=== PATIENT | male | born 1975 | race Caucasian/White ===

== ENCOUNTER 2021-05-23 15:28 | Emergency (ER) | payer SELFPAY ==
[~2021-05-23] VITALS: Ht 170.2 cm; Wt 61.4 kg
[2021-05-23] MEDS ORDERED: MORPHINE 4 MG/ML 1ML VIAL/SYRINGE (J2270) IV ONE (18:35)
--- NOTE | 2021-05-23 19:28 | REP ---
INDICATION: scrotal pain, inguinal pain, pls r/o hernia. COMPARISON: None. TECHNIQUE: High-resolution bilateral scrotal sonography. FINDINGS: Scrotal sonographic images demonstrate normal homogeneous testes. No intratesticular mass lesion is seen. Right testicular dimensions are 4.2 x 2.8 x 2.9 cm. The left testis measures 4.4 x 2.7 x 2.9 cm. There is a cyst in the head of the epididymis on the left measuring 0.3 cm in greatest diameter. Doppler flow is preserved to both testes. Resistive indices are 0.59 on the right and 0.46 on the left. There is no evidence of hernia, hydrocele, or varicocele. IMPRESSION: Normal bilateral scrotal sonography. Small epididymal cyst on the left. No acute abnormality. <Electronically signed by Roge Simms > 05/23/211924
--- NOTE | 2021-05-23 19:30 | REP ---
INDICATION: scrotal pain, inguinal pain, pls r/o hernia. COMPARISON: None. TECHNIQUE: Bilateral inguinal canal sonography is performed with and without Valsalva. FINDINGS: The patient's ability to Valsalva was somewhat limited by his pain. Inguinal canal sonography shows no evidence of hernia or abnormal fluid collection. No soft tissue mass is seen. IMPRESSION: No evidence of hernia is seen on either side. No abnormal fluid collection mass or adenopathy seen. <Electronically signed by Roge Simms > 05/23/211925
[2021-05-23 19:36] LABS: BASO # 0.1 10^3/uL (0.0-0.2); BASO % 0.7 % (0.0-1.0); EOS # 0.2 10^3/uL (0.0-0.5); EOS % 3.3 % (0.0-3.0); HEMATOCRIT 46.5 % (42.0-52.0); HEMOGLOBIN 16.1 g/dl (13.5-17.5); LYMPH # 1.7 10^3/uL (1.5-5.0); MEAN CORPUSCULAR HEMOGLOBIN 29.3 pg (27.0-33.0); MEAN CORPUSCULAR HGB CONC 34.6 g/dl (32.0-36.5); MEAN CORPUSCULAR VOLUME 84.7 fl (80.0-96.0); MONO # 0.6 10^3/uL (0.0-0.8); MONO % 8.5 % (2.0-8.0); NEUTROPHILS # 4.1 10^3/uL (1.5-8.5); NEUTROPHILS % 61.8 % (36.0-66.0); PLATELET COUNT, AUTOMATED 157 10^3/uL (150-450); RED BLOOD COUNT 5.49 10^6/uL (4.30-6.10); WHITE BLOOD COUNT 6.7 10^3/uL (4.0-10.0)
[2021-05-23] MEDS ORDERED: LIDOCAINE 4% CREAM 5GM (LMX4) TOP ONE (20:05)
[2021-05-23] MEDS ORDERED: METHOCARBAMOL 1,000 MG/10 ML VIAL (J2800) IV ONE (20:05)
--- NOTE | 2021-05-23 21:21 | REPVR ---
PROCEDURE INFORMATION: Exam: XR Abdomen Exam date and time: 05/23/2021 7:55 PM Age: 45 years old Clinical indication: Abdominal pain; Additional info: Lower abd pain TECHNIQUE: Imaging protocol: XR of the abdomen. Views: Frontal supine view of the abdomen. 1 View. COMPARISON: No relevant prior studies available. FINDINGS: Gastrointestinal tract: Normal. No bowel dilation. Bones/joints: Unremarkable. IMPRESSION: No acute findings. Electronically signed by: Mikaela Blum On 05/23/2021 21:20:49 PM
[2021-05-23] MEDS ORDERED: METH-1165 PO (21:33)
[2021-05-23] MEDS ORDERED: ANEC4CRE3 TOP (21:33)
[2021-05-23] MEDS ORDERED: NAPR-837 PO (21:33)
[2021-05-23 21:50] VITALS: BP 119/81
== END 2021-05-23 21:51 | disposition home or self-care (01) ==
LOC: M ED 15:28
DX: R10.30 Lower abdominal pain, unspecified (principal); N50.82 Scrotal pain; X50.0XXA Overexertion from strenuous movement or load, initial encounter; Y92.9 Unspecified place or not applicable; Y93.9 Activity, unspecified; Y99.0 Civilian activity done for income or pay; N50.3 Cyst of epididymis; F17.200 Nicotine dependence, unspecified, uncomplicated
CPT/HCPCS: 74018; 76857; 76870; 80047; 81001; 85025; 87086; 93976; 96374; 96375; 99284; J2270; J2800